=== PATIENT | female | born 1965 | race African-American/Black ===

== ENCOUNTER → 2017-03-02 | Outpatient (CLI) | payer OTHER, MEDICARE ==
[2016-06-09 09:17] VITALS: BP 133/70
[~2017-03-02] MED LIST: AMIT50TA PO; ATOR10TA60 PO; COD1CAPS2 PO; CYCL10TA2 PO; FLUT50DI IH; FURO20TA3 PO; GABA600T2 PO; HYDR25TA9 PO; LORA10TA3 PO; LORA10TA68 PO; MELO-150 PO; MULT1CAP15 PO; PANT40TA5 PO; PRAM0.255 PO; VENL75CA6 PO
--- NOTE | 2017-03-03 09:42 | PAIN ---
DATE OF SERVICE: 03/02/2017 DIAGNOSES: 1. Cervical radiculopathy. 2. Lumbar radiculopathy with lumbar degenerative disk disease. HISTORY OF PRESENT ILLNESS: The patient is a 51-year-old female who returns for followup status post lumbar epidural steroid injections. The patient was seen most recently on 10/19/2016. Did very well after her injections, but has developed increasing pain in the neck and left upper extremity. Since the last visit, the patient reports it is radiating from the base of the neck into the left shoulder, left anterior chest, posterior shoulder blade into the entire arm more on the anterior aspect, but entire arm into the forearm and upper arm into the hand with numbness and tingling in the fingers, mainly in the thumb and first and second fingers, but the pain can be tingly as well, has been getting much worse for the past 2-3 months. She did have an orthopedic consultation with some x-rays done of the left shoulder showing no significant abnormalities or findings, no fracture or dislocation. Joint spaces are maintained as well with suspect of cervical radiculopathy causing the pain; however, no other studies were ordered. The patient reports the pain now is an 8-10 on a scale of 10. It is aching, sharp, shooting, stabbing, cramping, burning and tingling with constant unbearable and severe type pain descriptions. The patient reports no loss of motor function with significant fatigability with her left shoulder and left upper extremity with any repetitive motion such as typing or even picking up the phone or driving. Raising her arm up above her shoulder to get dressed is becoming more difficult as well. The patient reports this pain wakes her up about 2-3 times at night from sleep. She has to reposition and change positions to try and get it better, also worse with daily activities, especially driving. PHYSICAL EXAMINATION: VITAL SIGNS: The patient's blood pressure 100/63, pulse 96, respirations are 18, temperature is 99.2 degrees Fahrenheit, height is 5 feet 4 inches, weight is 290 pounds. GENERAL: The patient is awake, alert, oriented and appropriate, has a very pleasant demeanor. HEENT: Head shows normocephalic, atraumatic. Extraocular movements are intact and symmetrical. Oral cavity shows mucous membranes moist and pink. Dentition is intact. NECK: Shows anterior throat supple without palpable lymphadenopathy noted. Swallow reflex is symmetrical. CHEST: Shows normal on inspection. Breath sounds are clear to auscultation bilaterally. HEART: Shows S1 and S2 clear. No murmurs auscultated. ABDOMEN: Obese, soft, nontender and nondistended. No palpable organomegaly is noted. No rebound or guarding demonstrated. BACK: Shows spine grossly in the midline. Cervical paraspinous musculature shows some moderate tenderness with palpation in the base of the left inferior aspect of the cervical paraspinous muscles whereas the superior medial and lateral trapezius is more tender on the left than the right, but appears roughly symmetrical on inspection. The patient's shoulder shows significant tenderness with abduction past 45 degrees on the left side, with resistance becomes more painful with deltoid contraction with resistance on the left side ____ the abduction. Right side is strong with 5/5 strength without difficulty. Left side is about 4 on scale of 5 with power operator strength and 3/5 with biceps and triceps flexion. Shoulder shrug is intact, but with loss of strength on resistance on the left side, which is painful as well. Peripheral pulses are 2+ radial distribution. No peripheral edema is noted. No clubbing, no cyanosis. Upper extremities are warm and dry to touch, equal in color and appearance. The patient's neck shows full rotation of motion, but with extension cause some minor pain in the base of the neck on the left side, relieved with forward flexion in the left and right lateral rotation is performed without difficulty closer to 90 degrees. Options were discussed with the patient. The patient's old chart was reviewed as her current medication regimen and updated. Current review of systems updated today as well. We will have the MRI scan of the cervical spine ordered as it has not been performed yet with significant clinical radiculopathy in the left upper extremity worsening with time over the past 2 to 3 months or so ____ pending MRI results, we will plan on potential interventional technique in the future, cervical epidural steroid injection would be in order if indicated with the MRI with clinical symptoms of left radiculopathy as she is demonstrating. The patient will continue to do stretching and strengthening exercises of the left upper extremity as well as the neck and shoulder. We will await for MRI scan results ANGEL N. ORR, MD DR: SANNA/perez JOB#: [id number] / [id number]
== END | disposition home or self-care (01) ==
LOC: PNCL 08:45
PROVIDERS: ATTEND Anesthesiology
DX: M51.16 Intervertebral disc disorders with radiculopathy, lumbar region (principal)
CPT/HCPCS: 99212

== ENCOUNTER → 2017-03-11 | Outpatient (CLI) | payer OTHER, MEDICARE ==
[2016-06-09 09:17] VITALS: BP 133/70
--- NOTE | 2017-03-11 16:48 | KCIC ---
PROCEDURE MRI of the cervical spine without contrast 03/11/2017 HISTORY Neck pain which radiates down the left shoulder and left arm. TECHNIQUE Unenhanced T1 weighted, T2 weighted and inversion recovery sagittal and gradient echo and T2 weighted axial images of the cervical spine were obtained. FINDINGS Some of the images are degraded by patient motion. There is slight reversal of the normal cervical lordosis. Degenerative signal changes are seen involving all of the discs of the cervical spine. Loss of height of the C5-6 disc is noted. The marrow signal of the visualized bony structures is within normal limits. No area of abnormal signal intensity is seen involving the cervical spinal cord. At the C2-3 disc space there is a minimal generalized disc bulge. Degenerative changes are seen involving the uncovertebral and facet joints bilaterally. These findings do not result in significant central spinal canal or neural foraminal stenosis. At the C3-4 disc space there is a mild generalized disc bulge. This is eccentric to the left. Degenerative changes are seen involving the uncovertebral and facet joints, left greater than right. These findings when combined do not result in significant central spinal canal stenosis. Mild left neural foraminal stenosis is seen. The right neural foramina is patent. At the C4-5 disc space there is a mild generalized disc bulge. Degenerative changes are seen involving the uncovertebral and facet joints bilaterally. These findings do not result in significant central spinal canal or neural foraminal stenosis. At the C5-6 disc space there is mild generalized disc bulge. Superimposed on this disc bulge is a right paracentral disc osteophyte complex. This measures 4 millimeters in AP diameter. Degenerative changes are seen involving the uncovertebral and facet joints bilaterally. These findings result in mild right-sided central spinal canal stenosis without significant cord impingement. No neural foraminal stenosis is seen. At the C6-7 disc space there is mild generalized disc bulge. This is eccentric to the left. Degenerative changes are seen involving the uncovertebral and facet joints bilaterally. These findings do not result in significant central spinal canal or neural foraminal stenosis. At the C7-T1 disc space there is a minimal generalized disc bulge. Degenerative changes are seen involving the facet joints bilaterally. These findings do not result in significant central spinal canal or neural foraminal stenosis. IMPRESSION Degenerative changes are seen throughout the cervical spine. These findings result in mild right-sided central spinal canal stenosis without evidence of cord impingement at C5-6. Mild left neural foraminal stenosis is seen at C3-4. Electronically signed by: Jagdeep Powell MD (March 11, 2017 16:47:14)
== END | disposition home or self-care (01) ==
LOC: KCIC MRI 13:17
PROVIDERS: ATTEND Anesthesiology
DX: M50.121 Cervical disc disorder at C4-C5 level with radiculopathy (principal); E78.00 Pure hypercholesterolemia, unspecified; I10 Essential (primary) hypertension; K21.9 Gastro-esophageal reflux disease without esophagitis; Z90.710 Acquired absence of both cervix and uterus; F32.9 Major depressive disorder, single episode, unspecified
CPT/HCPCS: 72141

== ENCOUNTER → 2017-03-29 | Outpatient (CLI) | payer OTHER, MEDICARE ==
[2016-06-09 09:17] VITALS: BP 133/70
[~2017-03-29] MED LIST changes: +IOHEXOL 180 MG/ML 10 ML VIAL. ONE; +methylPREDNISolone ACETATE 40 MG/ML VIAL. ONE; +methylPREDNISolone ACETATE 80 MG/ML VIAL. ONE
--- NOTE | 2017-03-30 05:41 | PAIN ---
DATE OF SERVICE: 03/29/2017 DIAGNOSES: 1. Cervical radiculopathy with cervical degenerative disk disease. 2. Lumbar radiculopathy with lumbar degenerative disk disease. HISTORY OF PRESENT ILLNESS: The patient is a 51-year-old female who returns for followup status post lumbar epidural steroid injections in the past and we had obtained a cervical MRI scan after her last visit last month and has shown some degenerative changes at C5-C6 and C6-C7 level as well as C4-C5 to some extent with some bulging disks and also some disk osteophyte complex at C5-C6 causing some impingement with protrusion effect of the disk at that level as well. The patient reports still significant pain at the base of the neck and shoulders with some radiation in the upper extremities, mostly on the left side into the hand with numbness, hands are hot and feels like they are "on fire" with tingling, burning, cramping, stabbing, shooting, dull, tight, aching, sharp, constant unbearable pain and some variation of all of these at times in the left arm, shoulders and neck. The patient reports it is a 10 on a scale of 10, it is an 8 at least. The patient reports it awakens her from sleep frequently, she is only sleeping about 2-3 hours a night on average. The patient reports no new motor or sensory deficits; however, no new bowel or bladder incontinence or other complaints. The patient's old chart was reviewed as her current medication regimen and updated. Current review of systems updated today as well. PHYSICAL EXAMINATION: VITAL SIGNS: The patient's blood pressure is 129/78, pulse 94, respirations are 18, temperature is 98.4 degrees Fahrenheit. Height is 5 feet 4 inches, weight is 291 pounds. GENERAL: The patient is awake, alert, oriented, appropriate, very pleasant demeanor. HEENT: Shows normocephalic and atraumatic. Extraocular movements are intact and symmetrical. Oral cavity shows mucous membranes moist and pink. Dentition is intact. NECK: Shows anterior throat supple without palpable lymphadenopathy noted. Swallow reflex is symmetrical. Posterior cervical musculature shows some moderate tenderness to palpation and diffuse tenderness in the superior medial trapezius as well as the inferior and middle cervical paraspinous musculature, which is symmetrical without atrophy or hypertrophy and without asymmetry. CHEST: Shows normal on inspection. Breath sounds are clear to auscultation bilaterally. HEART: Shows S1 and S2 clear. ABDOMEN: Soft, nontender, nondistended. No palpable organomegaly is noted. BACK: Shows spine grossly in the midline. Normal-appearing thoracic kyphosis and some mild flattening of the lumbar lordotic curvature. Lumbar paraspinous musculature is diffusely tender in the lower lumbar distribution as well, but only diffusely and only in the paraspinous muscles without radiation. EXTREMITIES: Upper extremities showed deep tendon reflexes at 2+ in the biceps and triceps tendons. Motor exam is approximately 4 on a scale of 5 with transition coach strength on the left and 5/5 on the right, bicep and tricep flexion likewise 4/5 left and 5/5 on the right side. Options were discussed with the patient. The patient's old chart was reviewed as her current medication regimen and updated. Current review of systems is updated today as well. We will proceed with a cervical epidural steroid injection today with fluoroscopic guidance. Risks were again discussed including but not limited to bleeding, infection, possibility of epidural hematoma, subsequent neurologic compromise, dural puncture, headaches, spinal cord and/or nerve damage, side effects of steroid medication and poor results regarding pain control. The patient understands and wishes to proceed. The patient will return to clinic in approximately 2 weeks for followup. She was counseled on her return appointment, activity level and side effects to be aware of. DIAGNOSIS: Cervical radiculopathy with cervical degenerative disk disease. PROCEDURE: Cervical epidural steroid injection in translaminar approach at C6-C7 level using C-arm fluoroscopic guidance under sterile prep and drape using local anesthetic. MEDICATION INJECTED: Depo-Medrol 120 mg plus 5 mL of preservative-free normal saline and 2 mL of Isovue for contrast. CONDITION AT DISCHARGE: Stable. The patient tolerated the procedure well, had no complications. ANGEL ORR MD DR: SANNA/perez JOB#: [id number] / [id number]
== END | disposition home or self-care (01) ==
LOC: PNCL 14:38
PROVIDERS: ATTEND Anesthesiology
DX: M50.10 Cervical disc disorder with radiculopathy, unspecified cervical region (principal); M51.16 Intervertebral disc disorders with radiculopathy, lumbar region; E78.00 Pure hypercholesterolemia, unspecified; F32.9 Major depressive disorder, single episode, unspecified; I10 Essential (primary) hypertension; K21.9 Gastro-esophageal reflux disease without esophagitis; Z87.39 Personal history of other diseases of the musculoskeletal system and connective tissue; Z90.710 Acquired absence of both cervix and uterus
CPT/HCPCS: 62321; J1030; J1040

== ENCOUNTER 2017-07-16 11:25 | Emergency (ER) | payer OTHER ==
[~2017-07-16] VITALS: Ht 162.6 cm; Wt 122.5 kg
[~2017-07-16 11:25] MED LIST changes: -IOHEXOL 180 MG/ML 10 ML VIAL. ONE; -MELO-150 PO; +MELO15TA23 PO; -methylPREDNISolone ACETATE 40 MG/ML VIAL. ONE; -methylPREDNISolone ACETATE 80 MG/ML VIAL. ONE
--- NOTE | 2017-07-16 12:18 | RAD ---
Three-view left foot radiographs 07/16/2017 Clinical history: Left foot pain for one day. AP, lateral and oblique digital radiographs of the left foot were obtained. Mild hallux valgus deformity is noted. Mild to moderate degenerative changes are seen involving the first MTP joint. Mild degenerative changes are seen scattered throughout the interphalangeal joints of the left foot. No fracture or dislocation is seen. Mild to moderate enthesophyte formation is seen involving the left calcaneus. Impression: Degenerative changes are seen involving the left foot as outlined above. No acute osseous abnormality is seen.
[2017-07-16 13:35] VITALS: BP 130/92
[2017-07-16] MEDS ORDERED: DICL50TA2 PO (14:23)
--- NOTE | 2017-07-16 14:23 | PHYS DOC ---
Past Medical History Past Medical History: GERD, Hypertension, Other Additional Past Medical Histor: Restless leg symdrome; Fibromyalgia; osteoarthritis; Seasonal Allergies Past Surgical History: Hysterectomy, Knee Replacement Additional Past Surgical Histo: Shoulder Alcohol Use: None Drug Use: None Adult General Chief Complaint Chief Complaint: FOOT INJURY PAIN HPI HPI Patient is a 52 year old female with history of hypertension who presents with left lateral foot pain that began yesterday. No known injury. Patient states the pain is worse on ambulating. Patient describes the pain as throbbing and rates the pain as mild. Review of Systems Review of Systems Constitutional: Denies fever or chills [] Musculoskeletal: Left foot pain Neurologic: Denies headache, focal weakness or sensory changes [] Allergies Allergies Allergies Coded Allergies Type Severity Reaction Last Updated Verified No Known Drug Allergies 06/09/16 No Physical Exam Physical Exam Constitutional: Well developed, well nourished, no acute distress, non-toxic appearance. [] Skin: Warm, dry, no erythema, no rash. [] Back: No tenderness, no CVA tenderness. [] Extremities: Left foot with no obvious deformity. Tenderness diffusely throughout the foot. No point tenderness on the base of the fifth metatarsal or the navicular bone of the left foot. Full range of motion to the left foot and toes. +2 left pedal pulse. Cap refill less than 2 seconds left toes. Neurologic: Alert and oriented X 3, normal motor function, normal sensory function, no focal deficits noted. [] Psychologic: Affect normal, judgement normal, mood normal. [] Current Patient Data Vital Signs Vital Signs Date Time Temp Pulse Resp B/P (MAP) Pulse Ox O2 Delivery O2 Flow Rate FiO2 07/16/17 13:35 98.1 88 16 97 Room Air 98.1 EKG EKG [] Radiology/Procedures Radiology/Procedures [] Course & Med Decision Making Course & Med Decision Making Pertinent Labs and Imaging studies reviewed. (See chart for details) Patient is in the ED with left foot pain, no known injury. Left foot x-rays interpreted by radiologist were negative for any acute findings but noted for arthritis. Provided orthopedic shoe applied by the ED RN, neurovascular exam is intact. Ice elevation encouraged. Discharged with instructions to follow-up with manager hvac provided. Discharged with diclofenac. Dragon Disclaimer Dragon Disclaimer This electronic medical record was generated, in whole or in part, using a voice recognition dictation system. Departure Departure Impression: Primary Impression: Arthritis of left foot Additional Impression: Left foot pain Disposition: 01 HOME, SELF-CARE Condition: STABLE Referrals: THERON CROWE MD (PCP) KORI JIANG DPM follow up in one week Patient Instructions: Arthritis, Degenerative-Brief Additional Instructions: You were seen for left foot pain. X-rays of the left foot shows you have arthritis. Ice and elevate the extremity. Take the prescribed medicines as needed for pain. Follow-up with the provided foot doctor next week. Scripts Diclofenac Potassium (DICLOFENAC POTASSIUM) 50 Mg Tablet 1 TAB PO BID, #30 TAB 0 Refills Prov: TARSHA COATS APRN 07/16/17 Problem Qualifiers TARSHA COATS APRN Jul 16, 2017 14:23
== END 2017-07-16 14:33 | disposition home or self-care (01) ==
LOC: ER 11:25
DX: M19.072 Primary osteoarthritis, left ankle and foot (principal); I10 Essential (primary) hypertension; K21.9 Gastro-esophageal reflux disease without esophagitis; M79.7 Fibromyalgia; G25.81 Restless legs syndrome
CPT/HCPCS: 73630; 99284

== ENCOUNTER → 2018-11-07 | Outpatient (CLI) | payer OTHER ==
[~2018-11-07] MED LIST changes: +DICL50TA2 PO; -GABA600T2 PO; +GABA600T7 PO; +HYDR-2145 PO; -HYDR25TA9 PO; -PANT40TA5 PO; +PANT40TA77 PO
--- NOTE | 2018-11-08 15:47 | RAD ---
DATE: 11/07/2018 EXAM: DIGITAL SCREEN BILAT W/CAD HISTORY: Routine screening COMPARISON: 01/12/2010 This study was interpreted with the benefit of Computerized Aided Detection (CAD). Breast Density: FATTY The breast parenchyma is primarily fatty replaced. Breast parenchyma level density A. FINDINGS: No new or enlarging breast densities are seen. There are unchanged benign-appearing lymph node type densities projected over the axillary tail regions bilaterally. Scattered benign type calcifications are present. There is a cluster of microcalcifications in the right breast located just medial and inferior to the midline which have progressed since the previous study. IMPRESSION: 1. Small cluster of microcalcifications in the right breast. Magnification CC and straight medial lateral views are suggested for optimal characterization. 2. Stable left mammograms I BI-RADS CATEGORY: 0 INCOMPLETE: NEEDS ADDITIONAL IMAGING EVALUATION AND/OR PRIOR MAMMOGRAMS FOR COMPARISON. RECOMMENDED FOLLOW-UP: ADD ADDITIONAL IMAGING PQRS compliance statement: Patient information was entered into a reminder system with a target due date for the next mammogram. Mammography is a sensitive method for finding small breast cancers, but it does not detect them all and is not a substitute for careful clinical examination. A negative mammogram does not negate a clinically suspicious finding and should not result in delay in biopsying a clinically suspicious abnormality. "Our facility is accredited by the [employer] Mammography Program."
== END | disposition home or self-care (01) ==
LOC: MAMMO 10:30
PROVIDERS: ATTEND Family Medicine
DX: Z12.31 Encounter for screening mammogram for malignant neoplasm of breast (principal)
CPT/HCPCS: 77067

== ENCOUNTER → 2018-11-10 | Outpatient (CLI) | payer OTHER ==
[~2018-11-10] MED LIST changes: +GABA600T2 PO; -GABA600T7 PO; +PANT40TA5 PO; -PANT40TA77 PO
--- NOTE | 2018-11-10 13:10 | RAD ---
DATE: 11/10/2018 EXAM: DIGITAL DIAGNOSTIC RT HISTORY: Suspicious screening study COMPARISON: 11/07/2018 This study was interpreted with the benefit of Computerized Aided Detection (CAD). Breast Density: FATTY The breast parenchyma is primarily fatty replaced. Breast parenchyma level density A. FINDINGS: Magnification views redemonstrate a cluster of microcalcifications located just medial to the midline of the right breast. There are numerous very faint microcalcifications. The larger microcalcifications are pleomorphic and granular. The straight mediolateral view shows that the calcifications are spread out over a somewhat linear distribution. The findings raise the possibility of DCIS. IMPRESSION: Suspicious right breast microcalcifications as described above. Stereotactic biopsy is suggested for further evaluation. Note: The findings were discussed with the patient at the time of the exam and she is aware of our recommendation for biopsy. She will follow-up with Dr. Russell. BI-RADS CATEGORY: 4 SUSPICIOUS ABNORMALITY- BIOPSY SHOULD BE CONSIDERED RECOMMENDED FOLLOW-UP: BIO BIOPSY RECOMMENDED PQRS compliance statement: Patient information was entered into a reminder system with a target due date for the next mammogram. Mammography is a sensitive method for finding small breast cancers, but it does not detect them all and is not a substitute for careful clinical examination. A negative mammogram does not negate a clinically suspicious finding and should not result in delay in biopsying a clinically suspicious abnormality. "Our facility is accredited by the [employer] Mammography Program."
== END | disposition home or self-care (01) ==
LOC: MAMMO 12:38
PROVIDERS: ATTEND Family Medicine
DX: R92.8 Other abnormal and inconclusive findings on diagnostic imaging of breast (principal)
CPT/HCPCS: 77065

== ENCOUNTER 2019-11-10 16:43 | Emergency (ER) | payer MEDICARE, OTHER ==
[~2019-11-10 16:43] MED LIST changes: -COD1CAPS2 PO; +COD1CAPS6 PO; -GABA600T2 PO; +GABA600T7 PO; -PANT40TA5 PO; +PANT40TA77 PO
[2019-11-10 17:21] VITALS: BP 136/69
[2019-11-10] MEDS ORDERED: HYDR-3164 PO (17:57)
[2019-11-10] MEDS ORDERED: METH4TAB2 PO (17:57)
[2019-11-10] MEDS ORDERED: ORPH100T PO (17:57)
--- NOTE | 2019-11-10 17:57 | PHYS DOC ---
Past Medical History Past Medical History: GERD, Hypertension, Other Additional Past Medical Histor: Restless leg symdrome; Fibromyalgia; osteoarthritis; Seasonal Allergies Past Surgical History: Hysterectomy, Knee Replacement Additional Past Surgical Histo: Shoulder Alcohol Use: None Drug Use: None Adult General Chief Complaint Chief Complaint: HIP PAIN HPI HPI Patient is a 54 year old female who presents with states for the last week she has had right sided pain going from her lower back into her hip and down the lateral leg into the knee. She states it is sharp and shooting in hurts worse when she goes to stand up or sit down. She states she does have small amount of numbness only to the lateral thigh. Patient rates her pain a 10 out of 10. Review of Systems Review of Systems Musculoskeletal: low back pain radiating into right hip and chencho lateral leg. or joint pain [] All other systems were reviewed and found to be within normal limits, except as documented in this note. Allergies Allergies Allergies Coded Allergies Type Severity Reaction Last Updated Verified No Known Drug Allergies 06/09/16 No Physical Exam Physical Exam Constitutional: Well developed, well nourished, no acute distress, non-toxic appearance. [] HENT: Normocephalic, atraumatic, bilateral external ears normal, oropharynx moist, no oral exudates, nose normal. [] Eyes: PERRLA, EOMI, conjunctiva normal, no discharge. [] Neck: Normal range of motion, no tenderness, supple, no stridor. [] Cardiovascular:Heart rate regular rhythm, no murmur [] Lungs & Thorax: Bilateral breath sounds clear to auscultation [] Abdomen: Bowel sounds normal, soft, no tenderness, no masses, no pulsatile masses. [] Skin: Warm, dry, no erythema, no rash. [] Back: Right lower back tenderness, no CVA tenderness. [] Extremities: No tenderness, no cyanosis, no clubbing, ROM intact, no edema. [] Neurologic: Alert and oriented X 3, normal motor function, normal sensory function, no focal deficits noted. [] Psychologic: Affect normal, judgement normal, mood normal. [] Current Patient Data Vital Signs Vital Signs Date Time Temp Pulse Resp B/P (MAP) Pulse Ox O2 Delivery O2 Flow Rate FiO2 11/10/19 17:21 98.6 102 22 136/69 (91) 96 Room Air 98.6 EKG EKG [] Radiology/Procedures Radiology/Procedures [] Course & Med Decision Making Course & Med Decision Making Patient is ambulatory and states she has been able to get up and walk but it is a very slow process. Full range of motion in her leg joints and no edema to her joints or deformities. Tenderness to the right low back and down through the lateral leg. No lateral swelling. Positive pedal pulse. Skin pink warm and dry. Cap refill less than 3 seconds. Patient denies any injury or falls. Alert and oriented. PERRLA. Speaks in full clear sentences. No saddle paresthesia. Denies loss of bowel or bladder. Given the patient a dose of prednisone, [place], muscle relaxer in the emergency room. Patient states she does have an upcoming primary care appointment on Tuesday. She states she will follow-up with her primary care provider. She states she does have some degenerative back disease and bulging disks. Dragon Disclaimer Dragon Disclaimer This electronic medical record was generated, in whole or in part, using a voice recognition dictation system. Departure Departure Impression: Primary Impression: Sciatica of right side Additional Impression: Low back pain Disposition: HOME, SELF-CARE Condition: STABLE Referrals: THERON CROWE MD (PCP) Patient Instructions: Sciatica, Sciatica with [facility] Additional Instructions: Follow-up with primary care as scheduled. Take medications as prescribed. Try using a heating pad. Scripts Methylprednisolone (MEDROL) 4 Mg Tab.ds.pk 1 PKG PO UD, #1 PKG Prov: RICHARD VELÁSQUEZ APRN 11/10/19 Orphenadrine Citrate (ORPHENADRINE CITRATE) 100 Mg Tablet.er 1 TAB PO BID, #20 TAB Prov: RICHARD VELÁSQUEZ INDUSTRIAL X RAY OPERATOR 11/10/19 Hydrocodone/Apap 5-325 (NORCO 5-325 TABLET) 1 Each Tablet 1 TAB PO PRN Q6HRS PRN for PAIN, #10 TAB 0 Refills Prov: RICHARD VELÁSQUEZ APRN 11/10/19 Problem Qualifiers Additional Impression: Low back pain Chronicity: acute Back pain laterality: right Sciatica presence: with sciatica Sciatica laterality: sciatica of right side Qualified Codes: M54.41 - Lumbago with sciatica, right side RICHARD VELÁSQUEZ INDUSTRIAL X RAY OPERATOR Nov 10, 2019 17:57
[2019-11-10] MEDS ORDERED: HYDROcodone/APAP 5/325MG 1 TAB TABLET PO ONE (18:15)
[2019-11-10] MEDS ORDERED: ORPHENADRINE CITRATE 60 MG/2 ML VIAL. IM ONE (18:15)
== END 2019-11-10 18:30 | disposition home or self-care (01) ==
LOC: ER 16:43
DX: M54.41 Lumbago with sciatica, right side (principal); M25.551 Pain in right hip; K21.9 Gastro-esophageal reflux disease without esophagitis; I10 Essential (primary) hypertension; G25.81 Restless legs syndrome; M19.90 Unspecified osteoarthritis, unspecified site; Z90.710 Acquired absence of both cervix and uterus; Z96.651 Presence of right artificial knee joint
CPT/HCPCS: 96372; 99283; J2360

== ENCOUNTER → 2020-09-08 | Outpatient (CLI) | payer MEDICARE ==
[~2020-09-08] MED LIST changes: +HYDR-3164 PO; +IOHEXOL 240 MG/ML 50ML VIAL. PO ONE; +IOHEXOL 300 MG/ML 100ML VIAL. IV ONE; +METH4TAB2 PO; +ORPH100T PO
--- NOTE | 2020-09-08 15:00 | KCIC ---
LUMBAR SPINE WO CONTRAST Date: 09/08/2020 12:30 PM Indication: LUMBAR RADICULOPATHY / Spl. Instructions: / History: LBP into both buttocks and thighs in recent months. Comparison: 01/28/2016. Technique: Multi-planar multi-weighted magnetic resonance imaging of the lumbar spine was performed without intravenous contrast using the standard lumbar spine protocol. FINDINGS: Trace anterolisthesis at L4-5. No acute fracture. Moderate multilevel degenerative disc desiccation and disc height loss. Degenerative endplate edema at L1-2 and L3-4. The conus terminates at a normal level. No abnormal signal is seen within the visualized distal spinal cord. No clumping of intrathecal nerve roots. No soft tissue abnormality in the visualized abdomen or pelvis. T11-T12: Disc bulge. Mild facet arthropathy. Mild spinal canal stenosis. Mild left neural foraminal narrowing. T12-L1: No disc bulge. No facet arthropathy. No significant spinal stenosis or neural foraminal narrowing. L1-L2: Disc bulge. Mild facet arthropathy. No significant spinal stenosis. Mild right and moderate left neural foraminal narrowing. L2-L3: Disc bulge. Mild facet arthropathy. Mild spinal canal stenosis. Mild right lateral recess narrowing. Mild bilateral neural foraminal narrowing. L3-L4: Disc bulge. Moderate facet arthropathy. No significant spinal stenosis. Mild right neural foraminal narrowing. L4-L5: Disc bulge. Severe facet arthropathy. Mild spinal canal stenosis. Moderate lateral recess narrowing. Mild right and moderate left neural foraminal narrowing. L5-S1: Disc bulge with lateral protrusion. Moderate facet arthropathy. No significant spinal stenosis. Mild bilateral neural foraminal narrowing. IMPRESSION: Moderate lumbar spondylosis, progressed from 2016 and detailed level by level above. Electronically signed by: Shaheed David MD (09/08/2020 2:57 PM) [id number]
--- NOTE | 2020-09-08 15:50 | KCIC ---
Examination: CT ABD PELV W/ORAL IV CONTRAST History: SWOLLEN AREA IN RUQ / Spl. Instructions: ORAL AND IV OMNI 300 100ML / History: Comparison/Correlation: None Findings: Axial images of the abdomen and pelvis were obtained following oral and IV contrast. Sagittal and coronal images provided. Minimal lingular linear scarring or atelectasis. Liver, spleen, pancreas, adrenal glands, and kidneys are unremarkable. No ascites or pelvic free fluid. Appendix is unremarkable. No bowel obstruction or extraluminal gas. A droplet of gas noted within the nondependent aspect of the urinary bladder. No inflammatory changes of the urinary bladder. Contrast-filled small bowel is present along the superior margin of the bladder and appears unremarkable. Vacuum disc phenomenon is noted at multiple levels of the visualized spine. Minimal retrolisthesis of L1 in relation to L2. Neural foraminal narrowing is present on the left at L-2. Abdominal wall is unremarkable. No hernia, fluid collection, or edema identified. The far lateral right and left flank regions were not fully included due to patient body habitus. Impression: No suspicious inflammatory process, collection, hernia, or other abnormality involving the visualized abdominal wall. A small droplet of gas is present in the urinary bladder. Correlate with instrumentation. No inflammatory findings or fistula noted. PQRS Compliance Statement: One or more of the following individualized dose reduction techniques were utilized for this examination: 1. Automated exposure control 2. Adjustment of the mA and/or kV according to patient size 3. Use of iterative reconstruction technique Electronically signed by: Neal Noel MD (09/08/2020 3:47 PM) [facility]
== END ==
LOC: KCIC MRI 12:19
PROVIDERS: ATTEND Family Medicine
DX: M47.26 Other spondylosis with radiculopathy, lumbar region (principal); R19.01 Right upper quadrant abdominal swelling, mass and lump; M47.818 Spondylosis without myelopathy or radiculopathy, sacral and sacrococcygeal region; M47.814 Spondylosis without myelopathy or radiculopathy, thoracic region; M48.07 Spinal stenosis, lumbosacral region; M48.04 Spinal stenosis, thoracic region
CPT/HCPCS: 72148; 74177; Q9966; Q9967

== ENCOUNTER 2021-11-10 12:35 | Day surgery (SDC) | payer MEDICARE ==
[~2021-11-10] VITALS: Ht 163.8 cm; Wt 132.0 kg
[~2021-11-10 12:35] MED LIST changes: +ACETAMINOPHEN 500 MG TABLET PO ONE; +CYCL10TA19 PO; -CYCL10TA2 PO; +HYDROmorphone 2 MG/ML INJ. IVP PRN; -IOHEXOL 240 MG/ML 50ML VIAL. PO ONE; -IOHEXOL 300 MG/ML 100ML VIAL. IV ONE; +IV RINGERS,LACTATED 1000ML 1,000 ML IV SCH; +METF10007 PO; +MORPHINE SULFATE 2 MG/ML INJ. IVP PRN; +PROCHLORPERAZINE 10 MG/2 ML VIAL. IVP PRN; +ceFAZolin SODIUM 3 GM in IV DEXTROSE 5% 100ML 100 ML IV PRN; +fentaNYL PF VIAL 100 MCG/2 ML VIAL IVP PRN
[2021-11-10 13:09] VITALS: BP 148/80
[2021-11-10] MEDS ORDERED: fentaNYL PF VIAL 100 MCG/2 ML VIAL ONE ×2 (13:12→15:30)
--- NOTE | 2021-11-10 13:19 | PDOC1 ---
History and Physical Date of Admission Date of Admission DATE: 11/10/21 TIME: 13:15 Identification/Chief Complaint Chief Complaint Abdominal wall mass with pain right side Source Source: Chart review, Patient History of Present Illness History of Present Illness 56-year-old female morbidly obese with complaints of a mass in the right upper abdomen tender to palpation been present for almost a year she thinks is getting larger and more painful Past Medical History Cardiovascular: HTN, Hyperlipidemia Pulmonary: No pertinent hx GI: GERD Heme/Onc: No pertinent hx Hepatobiliary: No pertinent hx Psych: Depression Infectious disease: No pertinent hx ENT: No pertinent hx Renal/: No pertinent hx Endocrine: Diabetes Dermatology: No pertinent hx Past Surgical History Past Surgical History: Total knee replacement, Hysterectomy, Other (Shoulder repair colonoscopy) Family History Family History: No Significant Social History Smoke: No ALCOHOL: none Drugs: None Current Medications Current Medications Current Medications Fentanyl Citrate (Fentanyl 2ml Vial) 25 mcg PRN Q5MIN PRN IVP MILD PAIN 1-3; Start 11/10/21 at 06:00; Stop 11/11/21 at 05:59 Fentanyl Citrate (Fentanyl 2ml Vial) 50 mcg PRN Q5MIN PRN IVP MODERATE PAIN 4- 6; Start 11/10/21 at 06:00; Stop 11/11/21 at 05:59 Morphine Sulfate (Morphine Sulfate) 1 mg PRN Q10MIN PRN IVP SEVERE PAIN 7-10; Start 11/10/21 at 06:00; Stop 11/11/21 at 05:59; Status UNV Ringer's Solution 1,000 ml @ 30 mls/hr Q24H IV ; Start 11/10/21 at 06:00; Stop 11/10/21 at 17:59; Status UNV Hydromorphone HCl (Dilaudid) 0.5 mg PRN Q10MIN PRN IVP SEVERE PAIN 7-10, 2nd CHOICE; Start 11/10/21 at 06:00; Stop 11/11/21 at 05:59; Status UNV Prochlorperazine Edisylate (Compazine) 5 mg PACU PRN PRN IVP NAUSEA, MRX1; Start 11/10/21 at 06:00; Stop 11/11/21 at 05:59; Status UNV Fentanyl Citrate (Fentanyl 2ml Vial) 25 mcg PRN Q5MIN PRN IVP MILD PAIN 1-3; Start 11/10/21 at 06:00; Stop 11/11/21 at 05:59; Status UNV Fentanyl Citrate (Fentanyl 2ml Vial) 50 mcg PRN Q5MIN PRN IVP MODERATE PAIN 4- 6; Start 11/10/21 at 06:00; Stop 11/11/21 at 05:59; Status UNV Morphine Sulfate (Morphine Sulfate) 1 mg PRN Q10MIN PRN IVP SEVERE PAIN 7-10; Start 11/10/21 at 06:00; Stop 11/11/21 at 05:59 Ringer's Solution 1,000 ml @ 30 mls/hr Q24H IV ; Start 11/10/21 at 06:00; Stop 11/10/21 at 17:59 Hydromorphone HCl (Dilaudid) 0.5 mg PRN Q10MIN PRN IVP SEVERE PAIN 7-10, 2nd CHOICE; Start 11/10/21 at 06:00; Stop 11/11/21 at 05:59 Prochlorperazine Edisylate (Compazine) 5 mg PACU PRN PRN IVP NAUSEA, MRX1; Start 11/10/21 at 06:00; Stop 11/11/21 at 05:59 Cefazolin Sodium 3 gm/Dextrose 100 ml @ 200 mls/hr 1X PREOP PRN IV PRIOR TO PROCEDURE; Start 11/10/21 at 06:00; Stop 11/10/21 at 15:00 Acetaminophen (Tylenol) 1,000 mg 1X ONCE PO ; Start 11/10/21 at 12:30; Stop 11/10/21 at 12:32; Status DC Fentanyl Citrate (Fentanyl 2ml Vial) 100 mcg STK-MED ONCE .ROUTE ; Start 11/10/21 at 13:12; Stop 11/10/21 at 13:12; Status DC Active Scripts Active Orphenadrine Citrate 100 Mg Tablet.er 1 Tab PO BID [place] 5-325 Tablet (Acetaminophen/Hydrocodone Bitart) 1 Each Tablet 1 Tab PO PRN Q6HRS PRN Reported Metformin Hcl 1,000 Mg Tablet 1,000 Mg PO HS Claritin (Loratadine) 10 Mg Tablet 10 Mg PO Furosemide 20 Mg Tablet 20 Mg PO DAILY Gabapentin 600 Mg Tablet 600 Mg PO TID Cyclobenzaprine Hcl 10 Mg Tablet 1 Tab PO TID PRN Multivitamins (Multivitamin) 1 Each Capsule 1 Each PO Amitriptyline Hcl 50 Mg Tablet 50 Mg PO DAILY PRN Cod Liver Oil 1 Each Capsule 1 Each PO DAILY Venlafaxine Hcl Er (Venlafaxine Hcl) 75 Mg Cap.er.24h 1 Cap PO DAILY Flovent 50MCG Diskus (Fluticasone Propionate) 50 Mcg Disk.w.dev 50 Mcg IH PRN Mirapex (Pramipexole Di-Hcl) 0.25 Mg Tablet 1 Mg PO QHS Atorvastatin Calcium 10 Mg Tablet 10 Mg PO HS Hydrochlorothiazide Tablet (Hydrochlorothiazide) 25 Mg Tablet 1 Tab PO DAILY Pantoprazole Sodium (Pantoprazole Sodium) 40 Mg Tablet.dr 1 Tab PO DAILY Meloxicam 15 Mg Tablet 1 Tab PO DAILY Allergies Allergies: Coded Allergies: No Known Drug Allergies (Unverified , 11/10/21) ROS Gastrointestinal: Yes Abdominal Pain Physical Exam General: Alert, Oriented X3, Cooperative, No acute distress HEENT: Atraumatic, PERRLA, EOMI Lungs: Clear to auscultation, Normal air movement Heart: RRR, no murmurs Abdomen: Normal bowel sounds, Soft, Other (Large subcutaneous mass right upper quadrant tender to palpation) Rectal Exam: not examined Extremities: No edema Skin: No significant lesion Neuro: Normal speech Psych/Mental Status: Mental status NL Vitals Vitals Vital Signs Date Time Temp Pulse Resp B/P (MAP) Pulse Ox O2 Delivery O2 Flow Rate FiO2 11/10/21 13:09 97.3 102 14 95 97.3 VTE Prophylaxis Ordered VTE Prophylaxis Devices: Yes VTE Pharmacological Prophylaxi: Contraindicated Assessment/Plan Assessment/Plan Large subcutaneous mass right abdomen plan excision Justifications for Admission Other Justification ABDELRAHMAN MARROQUIN MD Nov 10, 2021 13:19
[2021-11-10] MEDS: INSULIN LISPRO 100 UNIT/ML 3ML VIAL for OP,RR ONLY. SQ PRN ×2 (13:34→15:35)
[2021-11-10] MEDS ORDERED: PROPOFOL 10 MG/ML (20ML) VIAL. IV ONE (13:42)
[2021-11-10] MEDS ORDERED: DEXAMETHASONE SOD PHOS 4 MG/ML VIAL ONE (13:43)
[2021-11-10] MEDS ORDERED: KETOROLAC 30 MG/ML VIAL. ONE (13:43)
[2021-11-10] MEDS ORDERED: ONDANSETRON PF 4 MG/2 ML VIAL. ONE (13:43)
[2021-11-10] MEDS ORDERED: LIDOCAINE 2% PF 5 ML VIAL. ONE (13:44)
[2021-11-10] MEDS ORDERED: BUPIVACAINE-EPI 0.25% 30 ML VIAL KIT. ONE (13:45)
[2021-11-10] MEDS ORDERED: SUCCINYLCHOLINE 200 MG/10 ML VIAL. ONE (13:48)
[2021-11-10] MEDS ORDERED: ROCURONIUM 50 MG/5 ML VIAL. ONE (13:48)
--- NOTE | 2021-11-10 14:40 | PDOC4 ---
Operative Note Operative Note Date: November 10, 2021 at 2:38 PM Preoperative diagnosis: Right upper abdominal mass Postoperative diagnosis: Same Procedure: Excision of right upper abdominal mass Surgeon: Catarino Specimen: Mass Dictation: Patient is a 56-year-old female morbidly obese but has a complaints of enlarging mass in her right upper abdomen. Procedure of excision of mass was explained to the patient detail risk benefits were also discussed including bleeding infection alternatives this procedure also discussed with the patient and he seemed understand and gave a verbal written consent to have the procedure performed. Patient was taken to the operating room placed in the supine position general anesthesia was initiated once patient was sleeping in bed her abdomen was prepped and draped usual sterile fashion using ChloraPrep. Area over the mass was injected with quarter percent Marcaine with epinephrine incision was made with a 10 blade scalpel incision length was approximately 14 cm carried down through the subcutaneous tissues electrocautery right hemostasis electrocautery was used to excise the subcutaneous mass and sent for pathology of the mass size about 12 x 12 cm. The wound was then irrigated and suctioned dry hemostasis was achieved with electrocautery. The wound was then closed in 2 layers a deep layer running 3-0 Vicryl and the skin was reapproximated for septic and Monocryl Mastel Steri-Strips and island dressings were applied. Patient was awakened and x-rayed in the operating room taken to recovery in stable condition all sponge instrument needle counts listed as correct estimated blood loss 30 mL ABDELRAHMAN MARROQUIN MD Nov 10, 2021 14:40
[2021-11-10] MEDS ORDERED: OXYC-325 PO (14:42)
--- NOTE | 2021-11-10 14:44 | DISCH ---
DISCHARGE INSTRUCTIONS Condition on Discharge Condition on Discharge: Stable Activity After Discharge Activity Instructions for Disc: Avoid exertion Diet after Discharge Diet after Discharge: Regular Wound Incision Care Other wound/incision instructi: May shower in 24 hours Contacting the after DC Call your doctor for: If your condition worsens Follow-Up Follow up with: Follow-up Dr. Marroquin 2 weeks ABDELRAHMAN MARROQUIN MD Nov 10, 2021 14:44
[2021-11-10] MEDS ORDERED: DESFLURANE 31 TO 60 MINUTES IH ONE (14:46)
[2021-11-10] MEDS: fentaNYL PF VIAL 100 MCG/2 ML VIAL IVP PRN ×2 (15:33→15:42)
[2021-11-10] MEDS ORDERED: INSULIN LISPRO 100 UNIT/ML 3ML VIAL for OP,RR ONLY. SQ ONE ×2 (15:35)
[2021-11-10 15:55] VITALS: BP 126/56
[2021-11-10] MEDS ORDERED: oxyCODONE/APAP 5/325 1 TAB TABLET PO ONE (16:00)
--- NOTE | 2021-11-12 16:08 | PATHOLOGY ---
[facility] Accession Number: [id number] . 01 Material submitted: . abdomen - RIGHT ABDOMINAL WALL MASS. Modifiers: right, wall . 01 Clinical history: . RT ABD LIPOMA EXCISION LARGE RIGHT ABDOMINAL LIPOMA . 02 Diagnosis: Segment of fibroadipose tissue, right abdominal wall mass excision: - Lipoma. (JPM:[facility]; 11/12/2021) P 11/12/2021 1237 Local . 02 Comment: There is no evidence of malignancy. (JPM:[facility]; 11/12/2021) . 02 Electronically signed: . Darrell Leal MD, Pathologist NPI- [id number] . 01 Gross description: . The specimen is received in formalin, labeled "Annie Pugh, right abdominal wall mass". Received is an unoriented, 143 g, 12.0 x 8.3 x 4.4 cm irregularly shaped, unencapsulated, sy-yellow, lobulated piece of fibroadipose tissue. The external surface is inked black and the specimen is serially sectioned to reveal an unremarkable fibrofatty cut surface. No areas of calcification, hemorrhage or necrosis are grossly identified. Laundry Equipment Operator sections are submitted in cassettes A1 through A6. (JGG; 11/11/2021) JGG/JGG 11/11/2021 0909 Local . 02 Pathologist provided ICD-10: D17.1 . 02 CPT . 308674 Specimen Comment: A courtesy copy of this report has been sent to [phone], [phone] Specimen Comment: [id number] Specimen Comment: Report sent to / DR CROWE Specimen Comment: A duplicate report has been generated due to demographic updates. Performed at: [id number] [facility] [address], [place], [place] [id number] MD Vu Hook MD Phone: [phone] Performed at: [address] [id number] MD Darrell Leal MD Phone: [phone]
== END 2021-11-10 16:45 | disposition home or self-care (01) ==
LOC: SURG 12:35
PROVIDERS: ATTEND Surgery
DX: R19.00 Intra-abdominal and pelvic swelling, mass and lump, unspecified site (principal); D17.1 Benign lipomatous neoplasm of skin and subcutaneous tissue of trunk; I10 Essential (primary) hypertension; E78.00 Pure hypercholesterolemia, unspecified; E11.9 Type 2 diabetes mellitus without complications; G47.30 Sleep apnea, unspecified; K21.9 Gastro-esophageal reflux disease without esophagitis; M19.90 Unspecified osteoarthritis, unspecified site; F32.9 Major depressive disorder, single episode, unspecified; Z90.710 Acquired absence of both cervix and uterus; Z98.890 Other specified postprocedural states; Z79.899 Other long term (current) drug therapy
CPT/HCPCS: 22903; 82962; A4364; A4930; A6253; A6402; J0330; J1100; J1815; J1885; J2405; J2704; J3010; A4223; A4452

== ENCOUNTER 2021-12-25 17:28 | Emergency (ER) | payer MEDICARE ==
[~2021-12-25] VITALS: Ht 162.6 cm; Wt 137.7 kg
[~2021-12-25 17:28] MED LIST changes: -ACETAMINOPHEN 500 MG TABLET PO ONE; -HYDROmorphone 2 MG/ML INJ. IVP PRN; -IV RINGERS,LACTATED 1000ML 1,000 ML IV SCH; -MORPHINE SULFATE 2 MG/ML INJ. IVP PRN; +OXYC-325 PO; -PROCHLORPERAZINE 10 MG/2 ML VIAL. IVP PRN; -ceFAZolin SODIUM 3 GM in IV DEXTROSE 5% 100ML 100 ML IV PRN; -fentaNYL PF VIAL 100 MCG/2 ML VIAL IVP PRN
[2021-12-25] MEDS ORDERED: MORPHINE SULFATE 4 MG/ML INJ. IVP ONE (20:30)
[2021-12-25] MEDS ORDERED: ONDANSETRON PF 4 MG/2 ML VIAL. IVP ONE (20:30)
[2021-12-25 20:41] LABS: BASO # 0.1 x10^3/uL (0.0-0.2); BASO % 1 % (0-3); EOS # 0.2 x10^3/uL (0.0-0.7); EOS % 3 % (0-3); HEMATOCRIT 34.6 % (36.0-47.0); HEMOGLOBIN 11.6 g/dL (12.0-15.5); LYMPH % 36 % (24-48); MEAN CORPUSCULAR HEMOGLOBIN 27 pg (25-35); MEAN CORPUSCULAR HGB CONC 34 g/dL (31-37); MEAN CORPUSCULAR VOLUME 81 fL (79-100); MONO # 0.9 x10^3/uL (0.0-1.1); MONO % 11 % (0-9); NEUT % 49 % (31-73); PLATELET COUNT 426 x10^3/uL (140-400); RED BLOOD COUNT 4.27 x10^6/uL (3.50-5.40); RED CELL DISTRIBUTION WIDTH 14.2 % (11.5-14.5); WHITE BLOOD COUNT 8.2 x10^3/uL (4.0-11.0)
[2021-12-25 20:54] LABS: CALCIUM 8.9 mg/dL (8.5-10.1); GFR 68.9; POTASSIUM 3.4 mmol/L (3.5-5.1)
[2021-12-25] MEDS ORDERED: IOHEXOL 300 MG/ML 100ML VIAL. IV ONE (21:00)
[2021-12-25 21:09] LABS: ALBUMIN 3.4 g/dL (3.4-5.0); ALBUMIN/GLOBULIN RATIO 0.8 (1.0-1.7); TOTAL BILIRUBIN 0.3 mg/dL (0.2-1.0); TOTAL PROTEIN 7.9 g/dL (6.4-8.2)
[2021-12-25] MEDS ORDERED: CONTRAST GIVEN. MC PRN (21:15)
--- NOTE | 2021-12-25 21:41 | RAD ---
CT abdomen pelvis with contrast dated 12/25/2021. COMPARISON: 09/08/2020 CLINICAL INDICATION: Pain and swelling TECHNIQUE: Contiguous axial imaging the abdomen pelvis performed following the intravenous administration of 75 cc Isovue-370. One or more of the following individualized dose reduction techniques were utilized for this examinat ion: 1. Automated exposure control 2. Adjustment of the mA and/or kV according to patient size 3. Use of iterative reconstruction technique FINDINGS: Limited images of lung bases show linear bands of increased density in the right middle lobe and ling joleen, likely scar or atelectasis. Heart size within normal limits. No pleural or pericardial effusion. Liver, spleen, pancreas, adrenal glands, gallbladder and kidneys are unremarkable. No hydronephrosis. Unopacified GI tract normal in caliber and contour. No bowel wall thickening. No inflammatory strandi ng in the mesentery. No ascites or lymphadenopathy. Abdominal aorta normal in caliber. Appendix trinity l in caliber Images of pelvis show nondistended urinary bladder. The uterus is surgically absent. No free fluid or pelvic lymphadenopathy. Bone window show no acute findings. Multilevel spondylosis. There is a large fluid collection along t he anterior lateral abdominal wall on the right that is incompletely included on the study but measur es up to 18 cm in size. IMPRESSION: 1. Large fluid collection along the right anterior abdominal wall is of uncertain etiology. This coul d represent postoperative hematoma or seroma or abscess. Correlate clinically. 2. Otherwise no acute abnormality of abdomen or pelvis. Normal appendix. 3. Status post hysterectomy. Electronically signed by: Efrain Edwards MD (12/25/2021 9:38 PM) [facility]
[2021-12-25] MEDS ORDERED: SULF1TAB24 PO (21:53)
--- NOTE | 2021-12-25 21:55 | PHYS DOC ---
Past Medical History Past Medical History: GERD, Hypertension, Other Additional Past Medical Histor: Restless leg symdrome; Fibromyalgia; osteoa rthritis; Seasonal Allergies Past Surgical History: Hysterectomy, Knee Replacement Additional Past Surgical Histo: Shoulder Smoking Status: Former Smoker Alcohol Use: None Drug Use: None General Adult EDM: Chief Complaint: ABDOMINAL PAIN HPI: HPI: Patient is a 56 year old female who presents with right-sided abdominal pain and swelling. Patient had a lipoma removed by Dr. Toribio from the right upper abdomen on 11/10/2021. Patient reports that her 2-week follow-up, she had a fluid collection beneath the incision. She was told to wait 2 more weeks and revisit. At that time, she had fluid drained from beneath the incision. Today, she complains of increased pain and fluid collection beneath her incision. Patient reports associated nausea. She called Dr. Toribio's office today, who directed her to present to the emergency department. Patient denies have any imaging done on her abdomen since the lipoma removal. Patient denies fever, chills, generalized weakness, vomiting, diarrhea, constipation. Review of Systems: Review of Systems: Constitutional: See HPI Eyes: Denies change in visual acuity, visual field deficits or discharge HENT: Denies ear pain, nasal congestion or sore throat Respiratory: Denies cough or shortness of breath Cardiovascular: Denies chest pain, palpitations or edema GI: See HPI : Denies dysuria or hematuria Musculoskeletal: Denies back pain or joint pain Integument: Denies rash or other skin lesion Neurologic: Denies headache, focal weakness or sensory changes Heart Score: C/O Chest Pain: No Current Medications: Current Medications Medications (Trade) Dose Ordered Sig/Mark Start Time Stop Time Status Last Admin Dose Admin Info (CONTRAST GIVEN -- Rx MONITORING) 1 each PRN DAILY PRN 12/25/21 21:15 12/27/21 21:14 Iohexol (Omnipaque 300 Mg/ml) 75 ml 1X ONCE 12/25/21 21:00 12/25/21 21:02 DC 12/25/21 21:10 75 ML Morphine Sulfate (Morphine Sulfate) 4 mg 1X ONCE 12/25/21 20:30 12/25/21 20:31 DC 12/25/21 20:34 4 MG Ondansetron HCl (Zofran) 4 mg 1X ONCE 12/25/21 20:30 12/25/21 20:31 DC 12/25/21 20:34 4 MG Allergies: Allergies: Allergies Coded Allergies Type Severity Reaction Last Updated Verified No Known Drug Allergies 11/10/21 No Physical Exam: PE: Constitutional: Well developed, well nourished, no acute distress, non-toxic appearance. HENT: Normocephalic, atraumatic, bilateral external ears normal, nose normal. Eyes: EOMI, conjunctiva normal, no discharge. Neck: Normal range of motion, no stridor. Abdomen: Well-healed surgical incision noted over the right upper abdomen that is warm to the touch with underlying fluctuance. Bowel sounds normal, soft, no masses, no pulsatile masses. Skin: Warm, dry, no erythema, no rash. Extremities: No cyanosis, no clubbing, ROM intact, no edema, no obvious deformities. Neurologic: Alert and oriented x4, no focal deficits noted. Current Patient Data: Labs: Laboratory Tests Test 12/25/21 20:25 White Blood Count 8.2 x10^3/uL (4.0-11.0) Red Blood Count 4.27 x10^6/uL (3.50-5.40) Hemoglobin 11.6 g/dL (12.0-15.5) L Hematocrit 34.6 % (36.0-47.0) L Mean Corpuscular Volume 81 fL (79-100) Mean Corpuscular Hemoglobin 27 pg (25-35) Mean Corpuscular Hemoglobin Concent 34 g/dL (31-37) Red Cell Distribution Width 14.2 % (11.5-14.5) Platelet Count 426 x10^3/uL (140-400) H Neutrophils (%) (Auto) 49 % (31-73) Lymphocytes (%) (Auto) 36 % (24-48) Monocytes (%) (Auto) 11 % (0-9) H Eosinophils (%) (Auto) 3 % (0-3) Basophils (%) (Auto) 1 % (0-3) Neutrophils # (Auto) 4.0 x10^3/uL (1.8-7.7) Lymphocytes # (Auto) 3.0 x10^3/uL (1.0-4.8) Monocytes # (Auto) 0.9 x10^3/uL (0.0-1.1) Eosinophils # (Auto) 0.2 x10^3/uL (0.0-0.7) Basophils # (Auto) 0.1 x10^3/uL (0.0-0.2) Sodium Level 145 mmol/L (136-145) Potassium Level 3.4 mmol/L (3.5-5.1) L Chloride Level 105 mmol/L (98-107) Carbon Dioxide Level 30 mmol/L (21-32) Anion Gap 10 (6-14) Blood Urea Nitrogen 9 mg/dL (7-20) Creatinine 1.0 mg/dL (0.6-1.0) Estimated GFR (Cockcroft-Gault) 68.9 BUN/Creatinine Ratio 9 (6-20) Glucose Level 100 mg/dL (70-99) H Lactic Acid Level 1.3 mmol/L (0.4-2.0) Calcium Level 8.9 mg/dL (8.5-10.1) Total Bilirubin 0.3 mg/dL (0.2-1.0) Aspartate Amino Transferase (AST) 17 U/L (15-37) Alanine Aminotransferase (ALT) 23 U/L (14-59) Alkaline Phosphatase 70 U/L (46-116) Total Protein 7.9 g/dL (6.4-8.2) Albumin 3.4 g/dL (3.4-5.0) Albumin/Globulin Ratio 0.8 (1.0-1.7) L Laboratory Tests 12/25/21 20:25 Laboratory Tests 12/25/21 20:25 Vital Signs: Vital Signs Date Time Temp Pulse Resp B/P (MAP) Pulse Ox O2 Delivery O2 Flow Rate FiO2 12/25/21 20:34 Room Air 12/25/21 17:28 98.0 99 24 147/67 (93) 97 98.0 Radiology/Procedures: Radiology/Procedures: PROCEDURE: CT ABD PELV W/ IV CONTRST ONLY CT abdomen pelvis with contrast dated 12/25/2021. COMPARISON: 09/08/2020 CLINICAL INDICATION: Pain and swelling TECHNIQUE: Contiguous axial imaging the abdomen pelvis performed following the intravenous administration of 75 cc Isovue-370. One or more of the following individualized dose reduction techniques were utilized for this examination: 1. Automated exposure control 2. Adjustment of the mA and/or kV according to patient size 3. Use of iterative reconstruction technique FINDINGS: Limited images of lung bases show linear bands of increased density in the right middle lobe and lingula, likely scar or atelectasis. Heart size within normal limits. No pleural or pericardial effusion. Liver, spleen, pancreas, adrenal glands, gallbladder and kidneys are unremarkable. No hydronephrosis. Unopacified GI tract normal in caliber and contour. No bowel wall thickening. No inflammatory stranding in the mesentery. No ascites or lymphadenopathy. Abdominal aorta normal in caliber. Appendix normal in caliber Images of pelvis show nondistended urinary bladder. The uterus is surgically absent. No free fluid or pelvic lymphadenopathy. Bone window show no acute findings. Multilevel spondylosis. There is a large fluid collection along the anterior lateral abdominal wall on the right that is incompletely included on the study but measures up to 18 cm in size. IMPRESSION: 1. Large fluid collection along the right anterior abdominal wall is of uncertain etiology. This could represent postoperative hematoma or seroma or abscess. Correlate clinically. 2. Otherwise no acute abnormality of abdomen or pelvis. Normal appendix. 3. Status post hysterectomy. Electronically signed by: Efrain Edwards MD (12/25/2021 9:38 PM) [facility] [place] Med Decision Making: Course & Med Decision Making Pertinent Labs and Imaging studies reviewed. (See chart for details) Patient is a 56-year-old female that is greater than 1 month status post lipoma removal from her right upper abdomen. Patient presents to the ER under advisement of Dr. Toribio's office due to painful fluid collection beneath her incision. Patient reports she has had this drained once before. Work-up today will include labs, CT abdomen/pelvis with IV contrast. Spoke to Dr. Brooks, general surgery on-call, regarding patient case. He s uggests p.o. course of antibiotics for skin infection with follow-up on Tuesday on an outpatient basis. Patient is made aware of findings and recommendations of Dr. Brooks. Patient advised to monitor her blood sugar closely, as the antibiotic may increase the effects of her Metformin. Strict return precautions provided. Patient understands and is agreeable to discharge plan. Dragon Disclaimer: Draglidia Disclaimer: This electronic medical record was generated, in whole or in part, using a voice recognition dictation system. Departure Departure Impression: Primary Impression: Abdominal fluid collection Additional Impression: Post-operative complication Qualified Codes: L76.82 - Other postprocedural complications of skin and subcutaneous tissue Disposition: 01 HOME / SELF CARE / HOMELESS Condition: STABLE Referrals: THERON CROWE MD (PCP) ABDELRAHMAN TORIBIO MD Additional Instructions: EMERGENCY DEPARTMENT GENERAL DISCHARGE INSTRUCTIONS Thank you for coming to [facility] Emergency Department (ED) today and trusting us with you care. We trust that you had a positive experience in our Emergency Department. If you wish to speak to the department management, you may call the director at . YOUR FOLLOW UP INSTRUCTIONS ARE FOLLOWS: 1. Follow up with your primary care doctor. If you do not have a primary doctor, please ask for a resource list of physicians or clinics that may be able to assist you with follow up care. 2. The emergency provider has interpreted your imaging studies, if any were ordered. The radiology piping design specialist also reviewed them. If there is a change in the findings, you will be notified in 48 hours when at all possible. 3. If a lab test or culture has been done, your results will be reviewed and you will be notified if you need a change in treatment. 4. Follow instructions verbalized to you and refer to the printouts if needed. ADDITIONAL INSTRUCTIONS AND INFORMATION: 1. Your care today has been supervised by a physician who is specially trained in emergency care. Many problems require more than one evaluation for a complete diagnosis and treatment. We recommend that you schedule your follow up appointment as recommended to ensure complete treatment of you illness or injury. If you are unable to obtain follow up care and continue to have a problem, or if your condition worsens, we recommend that you return to the ED. 2. We are not able to safely determine your condition over the phone nor are we able to give sound medical advice over the phone. For these safety reasons, if you call for medical advice we will ask you to come to the ED for further evaluation. 3. If you have any questions regarding these discharge instructions please call the ED at . SAFETY INFORMATION: In the interest of safety, wellness, and injury prevention; we encourage you to wear your seat belt, if you smoke; quite smoking, and we encourage family to use a protective helmet for bicycling and other sporting events that present an increased risk for head injury. IF YOUR SYMPTOMS WORSEN OR NEW SYMPTOMS DEVELOP, OR YOU HAVE CONCERNS ABOUT YOUR CONDITION; OR IF YOUR CONDITION WORSENS WHILE YOU ARE WAITING FOR YOUR FOLLOW UP APPOINTMENT; EITHER CONTACT YOUR PRIMARY CARE DOCTOR, THE PHYSICIAN WHOSE NAME AND NUMBER YOU WERE GIVEN, OR RETURN TO THE ED IMMEDIATELY. Scripts Sulfamethoxazole/Trimethoprim (BACTRIM DS TABLET) 1 Each Tablet 1 TAB PO BID for 10 Days, #20 TAB 0 Refills Monitor your blood sugar closely, as this medication can increase the effects of Metformin. Prov: YUYL HESTER 12/25/21 YULY HESTER Dec 25, 2021 21:55
[2021-12-25 21:58] VITALS: BP 130/73
[2021-12-25] MEDS ORDERED: SMZ/TMP 800/160MG TABLET. PO ONE (22:00)
== END 2021-12-25 22:15 | disposition home or self-care (01) ==
LOC: ER 17:28
DX: K91.89 Other postprocedural complications and disorders of digestive system (principal); L76.82 Other postprocedural complications of skin and subcutaneous tissue; K21.9 Gastro-esophageal reflux disease without esophagitis; I10 Essential (primary) hypertension; Z87.891 Personal history of nicotine dependence; Y83.8 Other surgical procedures as the cause of abnormal reaction of the patient, or of later complication, without mention of misadventure at the time of the procedure
CPT/HCPCS: 36415; 74177; 80053; 83605; 85025; 87040; 96374; 96375; 99285; J2270; J2405; Q9967

== ENCOUNTER 2022-01-01 07:48 | Outpatient (CLI) | payer MEDICARE ==
[~2022-01-01] VITALS: Ht 162.6 cm; Wt 133.2 kg
[~2022-01-01 07:48] MED LIST changes: +SULF1TAB24 PO
[2022-01-01] MEDS ORDERED: LIDOCAINE WITH 8.4% SOD BICARB 3 ML DISP.SYRIN. ONE (08:06)
[2022-01-01 08:33] LABS: PROTHROMBIN TIME PATIENT 13.1 SEC (11.7-14.0)
[2022-01-01] MEDS ORDERED: POTA10TA12 PO (08:35)
[2022-01-01] MEDS ORDERED: VENL150C6 PO (08:35)
[2022-01-01] MEDS ORDERED: FURO40TA4 PO (08:35)
[2022-01-01] MEDS ORDERED: MV-M1TAB7 PO (08:35)
[2022-01-01] MEDS ORDERED: METF-658 PO (08:35)
[2022-01-01 08:36] VITALS: BP 148/64
[2022-01-01] MEDS ORDERED: MIDAZOLAM HCL/PF 2 MG/2 ML VIAL. ONE (09:12)
[2022-01-01] MEDS ORDERED: fentaNYL PF VIAL 100 MCG/2 ML VIAL ONE (09:12)
[2022-01-01 09:15] VITALS: BP 154/84
[2022-01-01 09:23] VITALS: BP 158/68
[2022-01-01 09:30] VITALS: BP 135/63
[2022-01-01] MEDS ORDERED: LIDOCAINE WITH 8.4% SOD BICARB 3 ML DISP.SYRIN. INJ ONE (09:30)
[2022-01-01 09:50] VITALS: BP 146/70
[2022-01-01 10:25] VITALS: BP 130/69
--- NOTE | 2022-01-01 10:51 | NUR ---
pt A&O x4. rt abdominal drain sutured in place. no drainage around drain. dressing D&I. sanguinous drainage present- showed pt how to empty drain , flush and keep track of drainage amounts, color and odor. pt to call Dr. Toribio's office for follow up visit. pt tolerating po well. ambulated to BR without problem. pt ambulated out to vehicle by self- (no sedation given)- family to pick her up. d/c instructions given and questions answered.
--- NOTE | 2022-01-01 12:25 | RAD ---
Ultrasound-guided drain placement, right abdominal wall hematoma/seroma INDICATION: Right abdominal wall fluid collection possible hematoma. Possible stroke. COMPARISON STUDY: CT abdomen and pelvis December 25, 2021 Consent: The procedure was explained in its entirety to the patient or the patients designated repres entative by a member of the treatment team, including a discussion of the risks, benefits and commonl y accepted alternatives to the procedure, as well as the expected consequences of no therapy whatsoev er. Discussion of the risks included, but was not limited to, those that are most frequent and thos e that are rare but possibly severe or life-threatening, as well as the possibility of unforeseen com plications. The patient was prepped and draped using maximum sterile technique, including the use of: Current west deline approved cutaneous antisepsis, a large sterile sheet to establish a sterile field. Additionall y the offset lithographic press operator wore a hat, mask, sterile gloves, a sterile gown during the procedure as well as pract iced acceptable hand hygiene prior to placing the line. Lidocaine was used for local anesthesia. Ultrasound evaluation demonstrates a multiloculated fluid collection in the right abdominal wall. 5 F rench sheathed needle was advanced into this collection under direct ultrasound guidance. A 12 Mongolian drain was placed. Approximately 1300 cc of bloody fluid was removed. The appearance suggests chronic hematoma. The drain was secured in place. Sterile dressings were applied. No immediate combinations were identified. IMPRESSION: Ultrasound-guided drain placement, right abdominal wall chronic hematoma/trauma Electronically signed by: Slim Maldonado MD (01/01/2022 12:23 PM) [id number]
== END 2022-01-01 10:30 | disposition home or self-care (01) ==
LOC: INTRAD 07:48
PROVIDERS: ATTEND Surgery
DX: S30.1XXA Contusion of abdominal wall, initial encounter (principal); I10 Essential (primary) hypertension; E78.00 Pure hypercholesterolemia, unspecified; E11.9 Type 2 diabetes mellitus without complications; K21.9 Gastro-esophageal reflux disease without esophagitis; G47.30 Sleep apnea, unspecified; F32.9 Major depressive disorder, single episode, unspecified; Z79.84 Long term (current) use of oral hypoglycemic drugs; Z79.899 Other long term (current) drug therapy; Z90.710 Acquired absence of both cervix and uterus; Z98.890 Other specified postprocedural states; Z88.8 Allergy status to other drugs, medicaments and biological substances; X58.XXXA Exposure to other specified factors, initial encounter; Y93.89 Activity, other specified; Y92.89 Other specified places as the place of occurrence of the external cause; Y99.8 Other external cause status
CPT/HCPCS: 10030; 36415; 85610; C1769; C1892; C1894; J3490

== ENCOUNTER 2022-01-28 07:41 | Day surgery (SDC) | payer MEDICARE ==
[~2022-01-28] VITALS: Ht 163.8 cm; Wt 13.0 kg
[~2022-01-28 07:41] MED LIST changes: +BUPIVACAINE-EPI 0.25% 30 ML VIAL KIT. ONE; +FURO40TA4 PO; +HYDROmorphone 2 MG/ML INJ. IVP PRN; +IV RINGERS,LACTATED 1000ML 1,000 ML IV SCH; +METF-658 PO; +MORPHINE SULFATE 2 MG/ML INJ. IVP PRN; +MV-M1TAB7 PO; +POTA10TA12 PO; +PROCHLORPERAZINE 10 MG/2 ML VIAL. IVP PRN; +VENL150C6 PO; +ceFAZolin SODIUM 3 GM in IV DEXTROSE 5% 100ML 100 ML IV PRN; +fentaNYL PF VIAL 100 MCG/2 ML VIAL IVP PRN
[2022-01-28 08:21] VITALS: BP 135/61
[2022-01-28] MEDS ORDERED: ACETAMINOPHEN 500 MG TABLET PO PRN (08:45)
[2022-01-28] MEDS ORDERED: INSULIN LISPRO 100 UNIT/ML 3ML VIAL for OP,RR ONLY. SQ PRN (08:45)
[2022-01-28] MEDS ORDERED: INSULIN LISPRO 100 UNIT/ML 3ML VIAL for OP,RR ONLY. SQ ONE (08:50)
[2022-01-28] MEDS ORDERED: ePHEDrine PF IN SALINE 50 MG/10 ML SYRINGE. IV ONE (09:03)
[2022-01-28] MEDS ORDERED: LIDOCAINE 2% PF 5 ML VIAL. ONE (09:03)
[2022-01-28] MEDS ORDERED: fentaNYL PF VIAL 100 MCG/2 ML VIAL ONE (09:03)
[2022-01-28] MEDS ORDERED: PROPOFOL 10 MG/ML (20ML) VIAL. IV ONE (09:03)
[2022-01-28] MEDS ORDERED: DEXAMETHASONE SOD PHOS 4 MG/ML VIAL ONE (09:04)
[2022-01-28] MEDS ORDERED: SUCCINYLCHOLINE 200 MG/10 ML VIAL. ONE (09:04)
[2022-01-28] MEDS ORDERED: ONDANSETRON PF 4 MG/2 ML VIAL. ONE (09:04)
[2022-01-28] MEDS ORDERED: ROCURONIUM 50 MG/5 ML VIAL. ONE (09:05)
[2022-01-28] MEDS ORDERED: SEVOFLURANE 31 TO 60 MINUTES. IH ONE (09:52)
[2022-01-28] MEDS ORDERED: PHENYLEPHRINE in 0.9% NACL PF 1 MG/10 ML SYRINGE. IV ONE (09:55)
--- NOTE | 2022-01-28 10:07 | PDOC4 ---
Operative Note Operative Note Date: January 282021 at 10:05 AM Preoperative diagnosis: Abdominal seroma Postoperative diagnosis: Same Procedure: Open and drainage of abdominal seroma Surgeon: Catarino Specimen: None Dictation: Patient is a 56-year-old female who had a large lipoma removed from her abdominal wall subsequently has developed a seroma which is reoccurred twice now even with close drain. The procedure of open incision with drainage was explained to the patient detail risk-benefit were also discussed including bleeding infection alternatives this procedure also discussed with the patient who seemed to understand and gave a verbal written consent had procedure performed. Patient was taken to the operating room placed in the supine position general anesthesia was initiated once patient was sleeping intubated her abdomen was prepped and draped usual sterile fashion using ChloraPrep. Area over the seroma was injected with quarter percent Marcaine with epinephrine incision was made with 15 blade scalpel and the seroma was entered large amount of serous fluid was aspirated from the seroma cavity the wound was then packed with half-inch Nu Gauze dressed with 4 x 4's and Medipore tape. Patient was awakened extubated in the operating room taken to recovery in stable condition all sponge instrument needle counts listed as correct estimated blood loss 5 mL ABDELRAHMAN MARROQUIN MD Jan 28, 2022 10:07
[2022-01-28] MEDS ORDERED: HYDR-2765 PO (10:11)
--- NOTE | 2022-01-28 10:13 | DISCH ---
DISCHARGE INSTRUCTIONS Condition on Discharge Condition on Discharge: Stable Activity After Discharge Activity Instructions for Disc: Activity as tolerated Weight Bearing Status after Di: No restrictions Diet after Discharge Diet after Discharge: Regular Wound Incision Care Other wound/incision instructi: Change dressing and packing daily Contacting the DRKalyani after DC Call your doctor for: If your condition worsens Follow-Up Follow up with: Dr. Marroquin in 1 week ABDELRAHMAN MARROQUIN MD Jan 28, 2022 10:13
[2022-01-28 10:40] VITALS: BP 124/86
[2022-01-28] MEDS ORDERED: HYDROcodone/APAP 7.5/325MG 1 TAB TABLET PO ONE (10:45)
== END 2022-01-28 11:20 | disposition home or self-care (01) ==
LOC: SURG 07:41
PROVIDERS: ATTEND Surgery
DX: T88.8XXA Other specified complications of surgical and medical care, not elsewhere classified, initial encounter (principal); K91.872 Postprocedural seroma of a digestive system organ or structure following a digestive system procedure; I10 Essential (primary) hypertension; E78.00 Pure hypercholesterolemia, unspecified; K21.9 Gastro-esophageal reflux disease without esophagitis; G47.30 Sleep apnea, unspecified; M19.90 Unspecified osteoarthritis, unspecified site; F32.9 Major depressive disorder, single episode, unspecified; Z90.710 Acquired absence of both cervix and uterus; Z98.890 Other specified postprocedural states; Z79.84 Long term (current) use of oral hypoglycemic drugs; Z79.899 Other long term (current) drug therapy; Z88.8 Allergy status to other drugs, medicaments and biological substances; X58.XXXA Exposure to other specified factors, initial encounter; Y93.89 Activity, other specified; Y92.89 Other specified places as the place of occurrence of the external cause; Y99.8 Other external cause status
CPT/HCPCS: 10140; 82962; A4209; A4930; A6402; J0330; J1100; J1815; J2370; J2405; J2704; J3010

== ENCOUNTER → 2022-02-25 | Outpatient (CLI) | payer MEDICARE ==
[2022-01-28 10:40] VITALS: BP 124/86
[~2022-02-25] MED LIST changes: -BUPIVACAINE-EPI 0.25% 30 ML VIAL KIT. ONE; +CONTRAST GIVEN. MC PRN; +HYDR-2765 PO; -HYDROmorphone 2 MG/ML INJ. IVP PRN; +IOHEXOL 240 MG/ML 50ML VIAL. PO ONE; +IOHEXOL 300 MG/ML 100ML VIAL. IV ONE; -IV RINGERS,LACTATED 1000ML 1,000 ML IV SCH; -MORPHINE SULFATE 2 MG/ML INJ. IVP PRN; -PROCHLORPERAZINE 10 MG/2 ML VIAL. IVP PRN; -ceFAZolin SODIUM 3 GM in IV DEXTROSE 5% 100ML 100 ML IV PRN; -fentaNYL PF VIAL 100 MCG/2 ML VIAL IVP PRN
[2022-02-25 08:47] LABS: CREATININE 1.1 mg/dL (0.6-1.0); GFR 61.7
--- NOTE | 2022-02-25 11:21 | RAD ---
Study: CT abdomen/pelvis with intravenous contrast Indication: Abdominal wall seroma. Pain and swelling. Comparison: 12/25/2021 Technique: Helical CT imaging performed of the abdomen and pelvis after the intravenous administratio n of 75 cc Omnipaque 300 contrast. Sagittal and coronal reformats were obtained. One or more of the following individualized dose reduction techniques were utilized for this examinat ion: 1. Automated exposure control 2. Adjustment of the mA and/or kV according to patient size 3. Use of iterative reconstruction technique. Findings: No significant new finding at the lower chest. Hepatic steatosis. Within normal limits gallbladder, biliary tree, pancreas, spleen and adrenal gland s. Symmetric renal parenchymal enhancement. No stone or hydronephrosis. Normal bladder wall thickness . Absent uterus. No adnexal mass. Unremarkable colon. No inflammatory changes at the expected location of the appendix. Normal caliber small bowel. Unremarkable stomach. Nonaneurysmal aorta. Mild scattered calcific atherosclerosis. No lymphadenopathy by size criteria. Decreased size of a thick-walled subcutaneous fluid collection within the right upper quadrant subcut aneous tissues. The collection contains a small amount of gas. The fluid portion of the collection is measured at approximately 7.2 cm AP by 2.1 cm transverse by 2.7 cm craniocaudal previously measured at 17 cm AP by 14 cm craniocaudal. Edema of the surrounding fat. No newly developed body wall fluid c ollection or hernia. Multifocal degenerative osseous findings to include the imaged spine as well as mild arthrosis at the hips. Multilevel vacuum phenomenon. The most pronounced discogenic arthrosis and surrounding endplat e sclerosis is at L1-L2. Multilevel neural foraminal stenosis. The central canal is narrowed at sever al levels but not well characterized. Impression: 1. Decreased size of a walled off fluid collection within the right upper quadrant subcutaneous tiss ues with the fluid portion now measured at 7.2 x 2.1 x 2.7 cm while previously up to 17 cm in maximum dimension. The collection now contains some gas which may be iatrogenic given drain placement on 12/22. An infected fluid collection/abscess is not able be excluded. 2. No newly developed intra-abdominal/pelvic abnormality. Redemonstration of advanced multilevel spo ndylosis. Electronically signed by: STANLEY MILLS MD (02/25/2022 11:19 AM) [facility]
== END ==
LOC: CT 08:08
PROVIDERS: ATTEND Nurse Practitioner Family
DX: S30.1XXD Contusion of abdominal wall, subsequent encounter (principal); K76.0 Fatty (change of) liver, not elsewhere classified; I70.0 Atherosclerosis of aorta; M16.0 Bilateral primary osteoarthritis of hip; M47.816 Spondylosis without myelopathy or radiculopathy, lumbar region; M48.061 Spinal stenosis, lumbar region without neurogenic claudication; X58.XXXD Exposure to other specified factors, subsequent encounter
CPT/HCPCS: 36415; 74177; 82565; 84520; Q9966; Q9967